=== PATIENT | female | born 1955 | race Caucasian/White ===

== ENCOUNTER 2024-05-23 12:45 | Emergency (ER) | payer MEDICARE, MEDICAID ==
[~2024-05-23] VITALS: Ht 162.6 cm; Wt 81.6 kg
[2024-05-23 13:01] VITALS: TEMP 98.4; O2SAT 97
[2024-05-23] MEDS ORDERED: TETRACAINE 0.5% OPHTH DROPS 4ML LEFTEYE ONE (13:30)
[2024-05-23] MEDS ORDERED: FLUORESCEIN SODIUM 1MG/STRIP LEFTEYE ONE (13:30)
[2024-05-23] MEDS ORDERED: KETO-98 LEFTEYE (14:49)
[2024-05-23] MEDS ORDERED: LORA10TA7 MT (14:51)
[2024-05-23] MEDS ORDERED: P50 MT (14:51)
[2024-05-23 15:38] VITALS: BP 174/76; PULSE 59; RESP 18; O2SAT 97
== END 2024-05-23 15:40 | disposition home or self-care (01) ==
LOC: ER 12:45
DX: H10.10 Acute atopic conjunctivitis, unspecified eye (principal); R21 Rash and other nonspecific skin eruption; R07.9 Chest pain, unspecified
CPT/HCPCS: 93005; 99283